=== PATIENT | female | born 1935 | race Caucasian/White ===

== ENCOUNTER 2018-02-20 01:32 | Emergency (ER) | payer MEDICARE, OTHER ==
[~2018-02-20] VITALS: Ht 162.6 cm; Wt 70.0 kg
[2018-02-20 01:40] VITALS: BP 128/93; PULSE 104; RESP 16; TEMP 98.2; O2SAT 97
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
== END 2018-02-20 02:44 | disposition home or self-care (01) ==
LOC: NEPD 01:32
DX: F03.90 Unspecified dementia, unspecified severity, without behavioral disturbance, psychotic disturbance, mood disturbance, and anxiety (principal); Y04.2XXA Assault by strike against or bumped into by another person, initial encounter; Y92.099 Unspecified place in other non-institutional residence as the place of occurrence of the external cause
CPT/HCPCS: 99284